=== PATIENT | male | born 1965 | race Caucasian/White ===

== ENCOUNTER 2017-10-23 00:35 | Emergency (ER) | payer BC ==
[~2017-10-23] VITALS: Ht 182.9 cm; Wt 81.6 kg
[2017-10-23 00:50] VITALS: BP 157/90
[2017-10-23] MEDS ORDERED: Ketorolac 30mg Inj IV ONE (01:00)
[2017-10-23] MEDS ORDERED: Dicyclomine HCl 10mg/5ml oral soln ORAL ONE (01:00)
[2017-10-23 01:42] LABS: APPEARANCE,URINE CLEAR; BILIRUBIN, URINE NEGATIVE (NEGATIVE); COLOR,URINE PALE YELLOW; GLUCOSE, URINE (UA) NEGATIVE (NEGATIVE); KETONES,URINE NEGATIVE (NEGATIVE); LEUKOCYTE ESTERASE ,URINE 1+ (NEGATIVE); NITRITE,URINE POSITIVE (NEGATIVE); PH,URINE 7 (4.5-8.0); PROTEIN,URINE 1+ (NEGATIVE); UROBILINOGEN,URINE NORMAL MG/DL (0.0-1.0)
[2017-10-23 01:58] LABS: ANION GAP 9 mmol/L (5-15); BLOOD UREA NITROGEN 18 mg/dL (7-18); CALCIUM 9.3 MG/DL (8.5-10.1); CARBON DIOXIDE 28 MMOL/L (21-32); CHLORIDE 101 MMOL/L (98-107); POTASSIUM 3.6 MMOL/L (3.5-5.1); SODIUM 138 MMOL/L (136-145)
[2017-10-23] MEDS ORDERED: HYDROmorphone 1mg/ml Carpuject IVP ONE (02:00)
[2017-10-23 02:03] LABS: ALANINE AMINOTRANSFERASE 27 U/L (12-78); ALBUMIN 3.8 G/DL (3.4-5.0); ALKALINE PHOSPHATASE 98 U/L (46-116); ASPARTATE AMINO TRANSFERASE 18 U/L (15-37); BILIRUBIN,TOTAL 0.4 MG/DL (0.2-1.0)
[2017-10-23 02:05] LABS: BASOPHILS % (AUTO) 1.2 % (0.0-2.0); EOSINOPHILS % (AUTO) 3.5 % (0.0-3.0); HEMATOCRIT 44.6 % (42.0-52.0); HEMOGLOBIN 15.5 G/DL (14.2-18.0); MEAN CORPUSCULAR VOLUME 91 FL (80-99); MONOCYTES % (AUTO) 8.1 % (1.0-10.0); NEUTROPHILS % (AUTO) 40.2 % (45.0-75.0); PLATELET COUNT 304 K/UL (150-450); WHITE BLOOD COUNT 10.1 K/UL (4.8-10.8)
[2017-10-23 03:00] VITALS: BP 148/82
[2017-10-23] MEDS ORDERED: TAMSULOSIN HCL0.4 MG ORAL (04:57)
[2017-10-23] MEDS ORDERED: PERCOCET 5-3251 EACH ORAL (04:57)
[2017-10-23 05:00] VITALS: BP 136/56
[2017-10-23 05:20] VITALS: BP 136/56
--- NOTE | 2017-10-23 06:51 | Emergency Room Report ---
History of Present Illness General Chief Complaint: Abdominal Pain Source: Patient Present Illness HPI Patient's a 52-year-old male who presented after increased left sided flank pain. Patient reportedly had prior history of kidney stones. He had been previously treated at [facility] with lithotripsy. The patient stated that he had been having sharp left sided flank pain. He denied having any testicular pain. He denied any diarrhea. He reported having one episode of vomiting.The patient is followed by Dr. Leila Delgado. He had been previously seen by Dr. Shine Hair for urology Allergies: Coded Allergies: No Known Allergies (Unverified , 10/23/17) Patient History Past Medical History: see triage record Reviewed Nursing Documentation: PMH: Agreed; PSxH: Agreed Review of Systems All Other Systems: negative except mentioned in HPI Physical Exam Vital Signs Date Time Temp Pulse Resp B/P (MAP) Pulse Ox O2 Delivery O2 Flow Rate FiO2 10/23/17 00:40 98.0 82 18 157/90 97 Room Air 98.1 Sp02 EP Interpretation: reviewed, normal General Appearance: normal inspection, well appearing, no apparent distress, alert, GCS 15 Head: atraumatic ENT: normal ENT inspection, hearing grossly normal, normal voice Neck: normal inspection, full range of motion, supple, no bony tend Respiratory: normal inspection, lungs clear, normal breath sounds, no respiratory distress, no retraction, no wheezing Cardiovascular #1: regular rate, rhythm, no edema Gastrointestinal: normal inspection, normal bowel sounds, non tender, soft, no guarding, no hernia Genitourinary: no CVA tenderness Musculoskeletal: normal inspection, back normal, normal range of motion Neurologic: normal inspection, alert, oriented x3, responsive, 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 Differential diagnosis included was not limited to pneumonia, renal stone, rib fracture, pulmonary embolism, ulcer, enteritis, pyelonephritis among others. Because of complexity of patient's case laboratory testing and imaging studies were ordered. KUB interpreted by showed metallic foreign body without evident obstruction or abnormal bowel gas pattern. The patient was given IV fluids as well as pain medication. The patient was offered a CT imaging which he declined and stated he had 2 previous CTs and did not want the radiation. The patient was offered admission and he declined. The patient stated that he wished to try outpatient medications and see if the stone passed spontaneously. Laboratory testing showed a normal renal function BUN/creatinine. White blood count was normal. The patient was advised follow-up with urology. Patient is advised to return if he began having persistent vomiting worsening pain or fever. Labs Test 10/23/17 00:57 White Blood Count 10.1 K/UL (4.8-10.8) Red Blood Count 4.90 M/UL (4.70-6.10) Hemoglobin 15.5 G/DL (14.2-18.0) Hematocrit 44.6 % (42.0-52.0) Mean Corpuscular Volume 91 FL (80-99) Mean Corpuscular Hemoglobin 31.6 PG (27.0-31.0) Mean Corpuscular Hemoglobin Concent 34.7 G/DL (32.0-36.0) Red Cell Distribution Width 12.0 % (11.6-14.8) Platelet Count 304 K/UL (150-450) Mean Platelet Volume 6.0 FL (6.5-10.1) Neutrophils (%) (Auto) 40.2 % (45.0-75.0) Lymphocytes (%) (Auto) 47.0 % (20.0-45.0) Monocytes (%) (Auto) 8.1 % (1.0-10.0) Eosinophils (%) (Auto) 3.5 % (0.0-3.0) Basophils (%) (Auto) 1.2 % (0.0-2.0) Urine Color Pale yellow Urine Appearance Clear Urine pH 7 (4.5-8.0) Urine Specific [place] 1.015 (1.005-1.035) Urine Protein 1+ (NEGATIVE) Urine Glucose (UA) Negative (NEGATIVE) Urine Ketones Negative (NEGATIVE) Urine Occult Blood 4+ (NEGATIVE) Urine Nitrite Positive (NEGATIVE) Urine Bilirubin Negative (NEGATIVE) Urine Urobilinogen Normal MG/DL (0.0-1.0) Urine Leukocyte Esterase 1+ (NEGATIVE) Urine RBC 2-4 /HPF (0 - 0) Urine WBC 0-2 /HPF (0 - 0) Urine Squamous Epithelial Cells Occasional /LPF Urine Bacteria Few /HPF (NONE) Sodium Level 138 MMOL/L (136-145) Potassium Level 3.6 MMOL/L (3.5-5.1) Chloride Level 101 MMOL/L (98-107) Carbon Dioxide Level 28 MMOL/L (21-32) Anion Gap 9 mmol/L (5-15) Blood Urea Nitrogen 18 mg/dL (7-18) Creatinine 1.0 MG/DL (0.55-1.30) Estimat Glomerular Filtration Rate > 60 mL/min (>60) Glucose Level 157 MG/DL (74-106) Calcium Level 9.3 MG/DL (8.5-10.1) Total Bilirubin 0.4 MG/DL (0.2-1.0) Aspartate Amino Transf (AST/SGOT) 18 U/L (15-37) Alanine Aminotransferase (ALT/SGPT) 27 U/L (12-78) Alkaline Phosphatase 98 U/L (46-116) Total Protein 7.6 G/DL (6.4-8.2) Albumin 3.8 G/DL (3.4-5.0) Globulin 3.8 g/dL Albumin/Globulin Ratio 1.0 (1.0-2.7) Lipase 166 U/L (73-393) Last Vital Signs Date Time Temp Pulse Resp B/P (MAP) Pulse Ox O2 Delivery O2 Flow Rate FiO2 10/23/17 05:20 98.1 79 18 136/56 96 Room Air 98.1 Status: improved Disposition: HOME, SELF-CARE Condition: Stable Scripts Tamsulosin Hcl (TAMSULOSIN HCL*) 0.4 Mg Cap.er.24h 0.4 MG ORAL BEDTIME, #10 CAP Prov: Yordan Ray 10/23/17 Oxycodone/Acetaminophen 5-325* (PERCOCET 5-325 MG TABLET*) 1 Each Tablet 1 TAB ORAL Q6H PRN for For Pain, #20 TAB Prov: Yordan Ray 10/23/17 Referrals: David Hair MD NOT CHOSEN [facility]/MD,REFERRING (PCP) Patient Instructions: Abdominal Pain, Adult CoryYordan Oct 23, 2017 06:51
--- NOTE | 2017-10-23 09:37 | Diagnostic Imaging Report ---
Indication: Abdominal pain Technique: XRAY Abdomen 1v Comparison: None Findings: Bowel gas pattern is nonobstructive and nonspecific. There is a radiodense 11 mm density projecting over the right upper abdomen. There is also a 1.4 cm calcification projecting over the left renal shadow. Degenerative changes of the spine and hips are seen. There is also suggestion of bilateral femoral acetabular impingement. Impression: Approximately 1.1 cm radiopaque density projecting over the right upper abdomen although the exact location is uncertain. Reported history of swallowed crown. Clinical correlation recommended. Nonobstructive bowel gas pattern. Calcification projecting of the left renal shadow could represent a calculus. Clinical correlation recommended.
[2017-10-23] MEDS ORDERED: ST. JOHN'S WOR300 MG PO (19:07)
[2017-10-23] MEDS ORDERED: RAMIPRIL10 MG ORAL (19:07)
[2017-10-23] MEDS ORDERED: SYMBICORT 16010.2 G1 IH (19:08)
[2017-10-23] MEDS ORDERED: ALBUTEROL SULF8.5 GM INH (21:15)
== END 2017-10-23 05:20 | disposition home or self-care (01) ==
LOC: EMR 01:09
DX: N23 Unspecified renal colic (principal); Z87.442 Personal history of urinary calculi
CPT/HCPCS: 36415; 74018; 80053; 81003; 83690; 85025; 96374; 96375; 99284; J1170; J1885; J2405

== ENCOUNTER 2017-10-23 16:40 | Inpatient (IN) | payer BC ==
[~2017-10-23] VITALS: Ht 182.9 cm; Wt 81.6 kg
[~2017-10-23 16:40] MED LIST: PERCOCET 5-3251 EACH ORAL; TAMSULOSIN HCL0.4 MG ORAL
[2017-10-23] MEDS ORDERED: HYDROmorphone 1mg/ml Carpuject IVP ONE (17:15)
[2017-10-23] MEDS ORDERED: DiphenhydrAMINE 50mg/ml Inj IVP ONE (17:15)
--- NOTE | 2017-10-23 17:15 | Emergency Room Report ---
History of Present Illness General Chief Complaint: Abdominal Pain Source: Patient Present Illness HPI Patient has a history of kidney stones. Patient has had 2 CAT scans in the past for his kidney stones. Patient also has a history of lithotripsy. Patient 's primary care physician is Dr. Garrett. Patient's urologist is Dr. Hoyos. Patient states that he had an acute attack on his left side and was seen in the emergency department yesterday. He had x-rays that show possible kidney stones. He declined a CT at that time because he's had 2 CAT scans are ready. He denies any fever nausea vomiting diarrhea or chills. States that the pain however has progressively become worse. He contacted his urologist and was told to come to the emergency department for evaluation and possible admission. Symptoms noted to be severe.No other modifying factors. No other associated signs and symptoms. No other complaints were noted. Allergies: Coded Allergies: No Known Allergies (Unverified , 10/23/17) Patient History Past Medical History: other - Kidney stone Past Surgical History: none Pertinent Family History: none Social History: Denies: smoking, alcohol use, drug use Reviewed Nursing Documentation: PMH: Agreed; PSxH: Agreed Nursing Documentation-PMH Hx Gastrointestinal Problems: Yes - KIDNEY STONE Review of Systems All Other Systems: negative except mentioned in HPI Physical Exam Vital Signs Date Time Temp Pulse Resp B/P (MAP) Pulse Ox O2 Delivery O2 Flow Rate FiO2 10/23/17 16:48 98.7 80 16 151/93 97 Room Air 98.8 Sp02 EP Interpretation: reviewed, normal General Appearance: alert, moderate distress Head: atraumatic Eyes: bilateral eye normal inspection ENT: normal ENT inspection, hearing grossly normal, normal voice Neck: normal inspection, full range of motion, supple, no bony tend Respiratory: normal inspection, lungs clear, normal breath sounds, no respiratory distress, no retraction, no wheezing Cardiovascular #1: regular rate, rhythm, no edema Gastrointestinal: normal inspection, normal bowel sounds, non tender, soft, no guarding, no hernia Genitourinary: CVA tenderness (L) Musculoskeletal: normal inspection, back normal, normal range of motion Neurologic: normal inspection, alert, responsive, speech normal Psychiatric: normal inspection, judgement/insight normal, anxious Skin: normal inspection, normal color, no rash Medical Decision Making Diagnostic Impression: Primary Impression: Kidney stone Additional Impressions: Renal colic on left side Intractable pain ER Course Patient presents emergency department today complaining of left flank pain. Differential considerations include kidney stone, lateral abnormality, infectious process just to name a few.Given the severity of the patient's presentation I felt this is a highly complex patient. This patient required extensive workup. CT scan of the abdomen and pelvis show a large 1.5 cm kidney stone at the left renal pelvis. Because of this large stone in the pain that is causing a for the patient require admission to the hospital. Case was discussed with Dr. Jonathon Bardales for admission. Labs Test 10/23/17 17:10 10/23/17 18:20 White Blood Count 17.1 K/UL (4.8-10.8) Red Blood Count 4.78 M/UL (4.70-6.10) Hemoglobin 14.7 G/DL (14.2-18.0) Hematocrit 43.2 % (42.0-52.0) Mean Corpuscular Volume 90 FL (80-99) Mean Corpuscular Hemoglobin 30.8 PG (27.0-31.0) Mean Corpuscular Hemoglobin Concent 34.1 G/DL (32.0-36.0) Red Cell Distribution Width 12.0 % (11.6-14.8) Platelet Count 269 K/UL (150-450) Mean Platelet Volume 5.8 FL (6.5-10.1) Neutrophils (%) (Auto) 80.3 % (45.0-75.0) Lymphocytes (%) (Auto) 11.9 % (20.0-45.0) Monocytes (%) (Auto) 6.9 % (1.0-10.0) Eosinophils (%) (Auto) 0.1 % (0.0-3.0) Basophils (%) (Auto) 0.8 % (0.0-2.0) Prothrombin Time 10.3 SEC (9.30-11.50) Prothromb Time International Ratio 1.0 (0.9-1.1) Activated Partial Thromboplast Time 29 SEC (23-33) Sodium Level 136 MMOL/L (136-145) Potassium Level 3.8 MMOL/L (3.5-5.1) Chloride Level 101 MMOL/L (98-107) Carbon Dioxide Level 24 MMOL/L (21-32) Anion Gap 11 mmol/L (5-15) Blood Urea Nitrogen 19 mg/dL (7-18) Creatinine 1.5 MG/DL (0.55-1.30) Estimat Glomerular Filtration Rate 48.8 mL/min (>60) Glucose Level 119 MG/DL (74-106) Calcium Level 9.0 MG/DL (8.5-10.1) Total Bilirubin 0.9 MG/DL (0.2-1.0) Aspartate Amino Transf (AST/SGOT) 25 U/L (15-37) Alanine Aminotransferase (ALT/SGPT) 25 U/L (12-78) Alkaline Phosphatase 76 U/L (46-116) Total Protein 7.9 G/DL (6.4-8.2) Albumin 3.8 G/DL (3.4-5.0) Globulin 4.1 g/dL Albumin/Globulin Ratio 0.9 (1.0-2.7) Lipase 95 U/L (73-393) Urine Color Yellow Urine Appearance Clear Urine pH 8 (4.5-8.0) Urine Specific [place] 1.010 (1.005-1.035) Urine Protein 1+ (NEGATIVE) Urine Glucose (UA) Negative (NEGATIVE) Urine Ketones 3+ (NEGATIVE) Urine Occult Blood 3+ (NEGATIVE) Urine Nitrite Negative (NEGATIVE) Urine Bilirubin Negative (NEGATIVE) Urine Urobilinogen Normal MG/DL (0.0-1.0) Urine Leukocyte Esterase 1+ (NEGATIVE) Urine RBC 10-15 /HPF (0 - 0) Urine WBC 5-10 /HPF (0 - 0) Urine Squamous Epithelial Cells None /LPF (NONE/OCC) Urine Amorphous Sediment Moderate /LPF (NONE) Urine Bacteria Moderate /HPF (NONE) CT/MRI/US Diagnostic Results CT/MRI/US Diagnostic Results : Imaging Test Ordered: CT:Large left-sided kidney stone Last Vital Signs Date Time Temp Pulse Resp B/P (MAP) Pulse Ox O2 Delivery O2 Flow Rate FiO2 10/23/17 16:48 98.7 80 16 151/93 97 Room Air 98.8 Status: improved Disposition: ADMITTED INPATIENT Condition: Serious PIPER PIMENTEL M.D. Oct 23, 2017 17:15
[2017-10-23 17:53] LABS: ANION GAP 11 mmol/L (5-15); BASOPHILS % (AUTO) 0.8 % (0.0-2.0); BLOOD UREA NITROGEN 19 mg/dL (7-18); CARBON DIOXIDE 24 MMOL/L (21-32); CHLORIDE 101 MMOL/L (98-107); CREATININE 1.5 MG/DL (0.55-1.30); EOSINOPHILS % (AUTO) 0.1 % (0.0-3.0); HEMATOCRIT 43.2 % (42.0-52.0); HEMOGLOBIN 14.7 G/DL (14.2-18.0); LYMPHOCYTES % (AUTO) 11.9 % (20.0-45.0); MEAN CORPUSCULAR VOLUME 90 FL (80-99); MONOCYTES % (AUTO) 6.9 % (1.0-10.0); NEUTROPHILS % (AUTO) 80.3 % (45.0-75.0); PLATELET COUNT 269 K/UL (150-450); POTASSIUM 3.8 MMOL/L (3.5-5.1); RED BLOOD COUNT 4.78 M/UL (4.70-6.10); SODIUM 136 MMOL/L (136-145); WHITE BLOOD COUNT 17.1 K/UL (4.8-10.8)
[2017-10-23 17:57] LABS: ALANINE AMINOTRANSFERASE 25 U/L (12-78); ALBUMIN 3.8 G/DL (3.4-5.0); ALBUMIN/GLOBULIN RATIO 0.9 (1.0-2.7); ALKALINE PHOSPHATASE 76 U/L (46-116); ASPARTATE AMINO TRANSFERASE 25 U/L (15-37); BILIRUBIN,TOTAL 0.9 MG/DL (0.2-1.0)
[2017-10-23 19:05] LABS: APPEARANCE,URINE CLEAR; BILIRUBIN, URINE NEGATIVE (NEGATIVE); GLUCOSE, URINE (UA) NEGATIVE (NEGATIVE); KETONES,URINE 3+ (NEGATIVE); LEUKOCYTE ESTERASE ,URINE 1+ (NEGATIVE); NITRITE,URINE NEGATIVE (NEGATIVE); PH,URINE 8 (4.5-8.0); PROTEIN,URINE 1+ (NEGATIVE); UROBILINOGEN,URINE NORMAL MG/DL (0.0-1.0)
[2017-10-23] MEDS ORDERED: ST. JOHN'S WOR300 MG PO (19:07)
[2017-10-23] MEDS ORDERED: RAMIPRIL10 MG ORAL (19:07)
[2017-10-23] MEDS ORDERED: SYMBICORT 16010.2 G1 IH (19:08)
[2017-10-23 19:19] VITALS: BP 142/84
[2017-10-23 19:29] LABS: COLOR,URINE YELLOW
[2017-10-23] MEDS ORDERED: cefTRIAXone 1 GM in D5W 55 ML IVPB ONE (19:45)
[2017-10-23] MEDS ORDERED: ALBUTEROL SULF8.5 GM INH (21:15)
[2017-10-23] MEDS: Tamsulosin 0.4mg cap ORAL SCH (22:04)
[2017-10-23] MEDS: D5 1/2NS 1,000 ML IV SCH (22:10)
[2017-10-24] VITALS: BP 116/74
[2017-10-24 04:00] VITALS: BP 136/81
[2017-10-24] MEDS: LORazepam 1mg tab ORAL PRN (04:20)
[2017-10-24] MEDS ORDERED: Vancomycin 1.5 GM/D5W 250ML IVPB ONE (05:00)
[2017-10-24] MEDS ORDERED: Zosyn 3.375gm inj ONE (05:55)
[2017-10-24] MEDS: Zosyn 3.375gm q8h **Extended infusion IVPB SCH ×6 (06:37→21:06)
[2017-10-24] MEDS: D5 1/2NS 1,000 ML IV SCH ×3 (06:37→23:00)
[2017-10-24 08:00] VITALS: BP 131/75
--- NOTE | 2017-10-24 09:25 | Diagnostic Imaging Report ---
Indication: Left-sided abdominal pain Technique: CT scan of the abdomen and pelvis utilizing automated exposure control without intravenous or oral contrast. Axial, sagittal and coronal images were obtained. CT dose: Total DLP 706 mGycm; CTDI vol 13.1 mGy Comparison: Plain radiographs from earlier the same day Findings: Evaluation of the solid organs is limited without intravenous contrast material. There is reticular prominence in the lung bases especially the left lower lobe. There is moderate left hydronephrosis with perinephric stranding. Approximately 1.5 cm calculus is seen in the region of the left renal pelvis/ureteral pelvic junction. Nonobstructive calculi are also seen of the bilateral kidneys measuring up to 4 mm. There is no right-sided hydronephrosis. There is a 1.5 cm right adrenal nodule compatible with adenoma. The spleen and pancreas are unremarkable. No CT dense gallstones are identified. There is a calcification in the right lobe of the liver. Small bowel loops are normal in caliber. The appendix is normal. There is a metallic density with adjacent artifact in the transverse colon. There is trace fluid in the pelvis. There is no free intraperitoneal air. Bladder is not well distended limiting evaluation. Degenerative changes of the spine, sacroiliac joints and hips are noted. Impression: Moderate left hydronephrosis with perinephric stranding. Approximately 1.5 cm calculus in the region of the left renal pelvis/ureteropelvic junction. Superimposed infection not excluded. Clinical correlation recommended. Nonobstructive bilateral renal calculi. Metallic density within the mid transverse colon. Swallowed foreign body should be considered. Normal appendix. Right adrenal low-density nodule compatible with adenoma. Mild reticular opacities in the lung bases especially in the left lower lobe, acuity indeterminate. Nonspecific interstitial process or bronchiolitis not excluded. Clinical correlation recommended. Other findings as above. The CT scanner at [facility] is accredited by the [employer] and the scans are performed using protocols designed to limit radiation exposure to as low as reasonably achievable to attain images of sufficient resolution adequate for diagnostic evaluation.
[2017-10-24 12:00] VITALS: BP 131/76
[2017-10-24] MEDS: Ramipril 2.5mg cap ORAL SCH (12:25)
[2017-10-24] MEDS ORDERED: Tubing IV Secondary IV ONE (14:29)
[2017-10-24] MEDS ORDERED: D5 1/2NS 1000ml IV ONE (14:29)
--- NOTE | 2017-10-24 14:30 | History & Physical ---
History and Physical History & Physicial HP dictated # [id number] ELENA JAEGER Oct 24, 2017 14:30
[2017-10-24 16:00] VITALS: BP 101/73
--- NOTE | 2017-10-24 19:15 | History and Physical Report ---
DATE OF ADMISSION: 10/23/2017 CHIEF COMPLAINT: Left-sided back pain. HISTORY OF PRESENT ILLNESS: This is a 52-year-old white male, who has history of kidney stones status post lithotripsy. The patient's primary doctor is Dr. Delgado. He asked me to see the patient for admission. The patient's urologist is Dr. Hair who was in contact with the patient yesterday and he cleared the patient to go to the emergency room. The patient was started on IV fluids, pain medication and was admitted. PAST MEDICAL HISTORY: Only includes history of kidney stones. The patient denies history of diabetes or hypertension. MEDICATIONS: Reviewed in the EMR. SOCIAL HISTORY: The patient has no history of smoking or alcohol abuse. ALLERGIES: No known drug allergies. REVIEW OF SYSTEMS: Noncontributory except what was mentioned. PHYSICAL EXAMINATION: GENERAL: The patient is a pleasant male, in no acute distress. VITAL SIGNS: In the emergency room, blood pressure was 151/93, pulse 80, temperature 98.7, respiratory rate 16. HEENT: [place] conjunctivae. Anicteric sclerae. NECK: Supple. LUNGS: Clear to auscultation. HEART: S1, S2 without murmurs or rubs. ABDOMEN: Soft, nontender without any mass. EXTREMITIES: No cyanosis or edema. LABORATORY FINDINGS: As of yesterday, the CBC showed WBC of 17,100, hematocrit 43.2, hemoglobin 14.7, and platelets 269,000. Chemistry panel shows serum sodium 136, potassium 3.8, chloride 101, CO2 24, BUN 19, creatinine 1.5, and glucose is 119. Albumin 3.8. The UA shows 5 to 10 wbc's per high-power field, 10 to 15 rbc's per high-power field, and 1+ protein. ASSESSMENT: This is a 52-year-old white male who was admitted with renal colic. The patient received some IV fluid and overnight he had some chills and was started on IV antibiotics. Currently, he does not have any pain. PLAN: I discussed the case with Dr. Hair over the phone this morning and he will see the patient and he may do cystoscopy in a few days and would like to have the patient on antibiotics for that period of time. The patient will be hydrated and adjustment will be made in the patient's regimen. The patient has also acute renal failure which may be from prerenal azotemia or obstruction, so the chemistry panel will be followed tomorrow. Jonathon Bardales M.D. DR: Tiara JOB#: [id number] CC:
[2017-10-24 20:00] VITALS: BP 134/89
[2017-10-24] MEDS: Tamsulosin 0.4mg cap ORAL SCH (21:00)
[2017-10-25] VITALS: BP 119/79
[2017-10-25 04:00] VITALS: BP 115/76
[2017-10-25] MEDS: Zosyn 3.375gm q8h **Extended infusion IVPB SCH ×6 (05:20→21:05)
[2017-10-25] MEDS: D5 1/2NS 1,000 ML IV SCH ×2 (05:20→15:00)
[2017-10-25 08:08] VITALS: BP 134/83
[2017-10-25] MEDS: Ramipril 2.5mg cap ORAL SCH (08:33)
[2017-10-25] MEDS: Vancomycin 1.5 GM/D5W 250ML IVPB SCH (10:13)
--- NOTE | 2017-10-25 11:06 | General Progress Note ---
Assessment/Plan Problem List: (1) Renal colic on left side ICD Codes: N23 - Unspecified renal colic SNOMED: 6297659 (2) Intractable pain ICD Codes: R52 - Pain, unspecified SNOMED: 38045253 (3) Kidney stone ICD Codes: N20.0 - Calculus of kidney SNOMED: 89120823 Assessment/Plan IVF pain meds will discuss with Dr Hair Subjective Allergies: Coded Allergies: No Known Allergies (Unverified , 10/23/17) Subjective has on and off pain Objective Last 24 Hour Vital Signs Date Time Temp Pulse Resp B/P (MAP) Pulse Ox O2 Delivery O2 Flow Rate FiO2 10/25/17 08:33 134/83 10/25/17 08:08 99.1 88 19 134/83 100 Room Air 99.1 10/25/17 04:00 98.4 79 18 115/76 97 Room Air 98.4 10/25/17 00:00 97.8 80 17 119/79 97 Room Air 97.8 10/24/17 21:25 99.3 10/24/17 21:21 99.3 99.3 10/24/17 20:00 99.8 87 19 134/89 97 Room Air 99.8 10/24/17 19:53 100.6 10/24/17 18:44 100.6 100.6 10/24/17 16:54 100.3 100.3 10/24/17 16:00 100.4 74 18 101/73 96 Room Air 100.4 10/24/17 15:05 101.4 10/24/17 15:00 101.4 101.4 10/24/17 12:25 131/76 10/24/17 12:00 99.8 96 18 131/76 100 Room Air 99.8 Intake and Output 10/24/17 10/25/17 19:00 07:00 Intake Total 55.0 ml 1172.5 ml Output Total 1150 ml Balance -1095.0 ml 1172.5 ml Intake Oral 360 ml IV Total 55.0 ml 812.5 ml Output Urine Total 1150 ml # Voids 1 1 Height (Feet): 6 Height (Inches): 0.00 Weight (Pounds): 180 Cardiovascular: normal rate Respiratory/Chest: lungs clear Abdomen: soft Edema: no edema noted ELENA Skelton Oct 25, 2017 11:06
[2017-10-25 12:00] VITALS: BP 146/90
[2017-10-25] MEDS: Docusate 100mg cap ORAL SCH ×2 (13:16→18:27)
[2017-10-25 16:00] VITALS: BP 128/85
--- NOTE | 2017-10-25 17:00 | Consultation ---
DATE OF CONSULTATION: 10/25/2017 REASON FOR CONSULTATION: Left ureteral stone and urosepsis. HISTORY OF PRESENT ILLNESS: This is a 52-year-old male. He had a history of kidney stones and I operated him in 2011 with similar complaint and at this time, he developed acute renal colic, came to [facility] ER twice. First time, he left and second time came with my advise and got admitted for 1.5 cm stone in the left renal pelvis and urinary and blood cultures were done and the patient was started on Zosyn and vancomycin with some improvement. The CT scan was done showing 1.5 cm stone in the collecting system of the . PAST MEDICAL HISTORY: Includes history of kidney stones. No history of diabetes or hypertension. MEDICATIONS: Reviewed in the EMR. ALLERGIES: No known drug allergies. SOCIAL HISTORY: No history of smoking or alcohol abuse. REVIEW OF SYMPTOMS: Noncontributory except for left flank pain. PHYSICAL EXAMINATION: GENERAL: He is a pleasant man, in no acute distress. LUNGS: Clear to auscultation. CARDIOVASCULAR: Regular rate and rhythm. S1 and S2 without murmurs. ABDOMEN: Soft. Slightly tender in the left quadrant. LABORATORY DATA: Reviewed. WBC was 17,000, and platelets 269,000. Creatinine is 1.5. Glucose 119. CT was reviewed as I mentioned before. ASSESSMENT AND PLAN: This is a 52-year-old male with urosepsis and left renal stone. I discussed the strategies with Dr. Bardales and the patient. The patient will receive couple days of intravenous antibiotics followed by definitive surgery. David Hair M.D. DR: LANA JOB#: [id number] CC:
[2017-10-25] MEDS ORDERED: Magnesium Citrate Liq Btl ORAL SCH (17:30)
--- NOTE | 2017-10-25 18:00 | Consultation ---
DATE OF CONSULTATION: 10/25/2017 INFECTIOUS DISEASE CONSULTATION CONSULTING PHYSICIAN: Vin Bardales M.D. PRIMARY ATTENDING PHYSICIAN: Jonathon Bardales M.D. REASON FOR CONSULT: Sepsis, bacteremia. HISTORY OF PRESENT ILLNESS: This is a 52-year-old white male, who has history of kidney stones, started to have pain in the left flank a couple of days ago. He stated that his pain was on and off, 04/13. He was admitted on 10/23/2017, had fever up to 101.4. In hospital, blood cultures growing gram-positive cocci. The patient also states that he ingested dental crown. PAST MEDICAL HISTORY: He has nephrolithiasis x2 and has history of lithotripsy. ALLERGIES: No known drug allergies. MEDICATIONS: Getting vancomycin, Ramipril, Zosyn, lorazepam, Flomax, hydromorphone, and . The patient had fever yesterday, today he is afebrile. He has nausea, vomiting, and constipation that are treated with hydromorphone. Abdominal pain has shifted to lower abdomen in the left side. SOCIAL HISTORY: . He is a [employer] software engineer. Does not drink. Does not smoke. Use sometimes marijuana. PHYSICAL EXAMINATION: VITAL SIGNS: Temperature 99.1 degrees, pulse 88, and blood pressure 134/83. GENERAL APPEARANCE: No acute distress. HEAD AND NECK: [place] conjunctiva. HEART: S1 and S2. Regular. LUNGS: Clear. ABDOMEN: Soft. Mildly tender in left lower abdomen. EXTREMITIES: He has no edema. LABORATORY AND DIAGNOSTIC DATA: Sodium 136, potassium 3.6, chloride 101, bicarb 24, BUN 19, creatinine 1.5, and glucose 119. WBC on 10/23/2017 was 17.1, hemoglobin 14.7, hematocrit 43.2, and platelets 269,000. The patient has the CT scan of the abdomen and pelvis that showed 1.5 cm stone in the left renal pelvic or ureteropelvic junction, moderate left hydronephrosis with perinephric stranding and additional nonobstructive bilateral renal calculi. There was nonmetallic density within the mid transverse colon. So, swallowed foreign body should be considered. IMPRESSION: Sepsis with fever and leukocytosis. The patient has bacteremia with gram-positive cocci. May have urinary tract infection, pyelonephritis, has left hydronephrosis, has nephrolithiasis, has right adrenal adenoma, has some evidence of kidney injury. RECOMMENDATION: We will continue with Zosyn and vancomycin. The patient will have a visit from urologist Dr. Hair today. We will start the patient on a stool softener. We will repeat CBC tomorrow. At the end of my exam, I thank Dr. Bardales, for involving me in the care of this patient. Vin Bardales M.D. DR: DAVI JOB#: [id number] CC:
[2017-10-25 20:00] VITALS: BP 137/87
[2017-10-25] MEDS: Tamsulosin 0.4mg cap ORAL SCH (21:00)
[2017-10-25] MEDS: LORazepam 1mg tab ORAL PRN (22:53)
[2017-10-26] VITALS (8 sets, daily range): BP systolic 120–152; BP diastolic 79–97
[2017-10-26] MEDS: D5 1/2NS 1,000 ML IV SCH ×4 (01:12→21:45)
[2017-10-26] MEDS: Zosyn 3.375gm q8h **Extended infusion IVPB SCH ×6 (05:37→21:44)
[2017-10-26] MEDS: Ramipril 2.5mg cap ORAL SCH (08:47)
[2017-10-26] MEDS: Docusate 100mg cap ORAL SCH ×3 (08:47→18:00)
[2017-10-26 09:10] LABS: BASOPHILS % (AUTO) 0.5 % (0.0-2.0); EOSINOPHILS % (AUTO) 1.1 % (0.0-3.0); HEMATOCRIT 39.2 % (42.0-52.0); HEMOGLOBIN 13.4 G/DL (14.2-18.0); LYMPHOCYTES % (AUTO) 15.5 % (20.0-45.0); MEAN CORPUSCULAR VOLUME 92 FL (80-99); NEUTROPHILS % (AUTO) 70.9 % (45.0-75.0); PLATELET COUNT 247 K/UL (150-450); RED BLOOD COUNT 4.24 M/UL (4.70-6.10); RED CELL DISTRIBUTION WIDTH 12.1 % (11.6-14.8); WHITE BLOOD COUNT 11.5 K/UL (4.8-10.8)
[2017-10-26 09:19] LABS: ANION GAP 8 mmol/L (5-15); BLOOD UREA NITROGEN 9 mg/dL (7-18); CARBON DIOXIDE 28 MMOL/L (21-32); CHLORIDE 99 MMOL/L (98-107); CREATININE 1.7 MG/DL (0.55-1.30); POTASSIUM 4.2 MMOL/L (3.5-5.1); SODIUM 135 MMOL/L (136-145)
[2017-10-26] MEDS ORDERED: NS 500ML ONE (09:21)
[2017-10-26] MEDS ORDERED: Tubing IV Secondary IV ONE (09:21)
[2017-10-26] MEDS ORDERED: D5 1/2NS 1000ml IV ONE (09:21)
[2017-10-26] MEDS: Vancomycin 1.5 GM/D5W 250ML IVPB SCH (10:42)
--- NOTE | 2017-10-26 12:00 | Infectious Diseases Prog Note ---
Assessment/Plan Assessment/Plan A; Sepsis Bacteremia Upper UTI pyelonephritis Nephrolithiasis Left hydronephrosis Intracolonic foreign body P; Continue Vancomycin & Zosyn will f/u cultures will f/u KUB Subjective ROS Limited/Unobtainable: No Constitutional: Reports: fever Respiratory: Reports: no symptoms Gastrointestinal/Abdominal: Reports: other - had bowel movement Genitourinary: Reports: other - lower abdominal pain in left side Neurologic: Reports: no symptoms Allergies: Coded Allergies: No Known Allergies (Unverified , 10/23/17) Objective Vital Signs Last 24 Hour Vital Signs Date Time Temp Pulse Resp B/P (MAP) Pulse Ox O2 Delivery O2 Flow Rate FiO2 10/26/17 11:21 99.9 10/26/17 10:08 99.9 99.9 10/26/17 09:46 100.8 10/26/17 08:47 100.8 10/26/17 08:47 135/79 10/26/17 08:30 100.8 87 20 135/79 95 Room Air 100.8 10/26/17 04:00 100.1 77 20 120/84 96 Room Air 100.1 10/26/17 00:00 99.1 90 20 135/88 95 Room Air 99.1 10/25/17 20:00 99.0 85 20 137/87 98 Room Air 99.0 10/25/17 16:00 101.5 81 20 128/85 98 Room Air 101.5 10/25/17 15:38 101.5 10/25/17 12:00 99.4 84 20 146/90 98 Room Air 99.4 Height (Feet): 6 Height (Inches): 0.00 Weight (Pounds): 180 General Appearance: no acute distress HEENT: mucous membranes moist Respiratory/Chest: lungs clear Cardiovascular: normal rate Abdomen: soft, non tender Extremities: no edema Neurologic/Psychiatric: alert, oriented x 3, responsive Microbiology Date/Time Source Procedure Growth Status 10/24/17 04:20 Blood Blood Culture - Preliminary Gram Positive Cocci Resulted 10/24/17 04:10 Blood Blood Culture - Preliminary Gram Positive Cocci Resulted 10/23/17 18:20 Urine,Clean Catch Urine Culture - Preliminary Mixed Gram Positive Organism Resulted Laboratory Tests Test 10/26/17 06:30 White Blood Count 11.5 K/UL (4.8-10.8) H Red Blood Count 4.24 M/UL (4.70-6.10) L Hemoglobin 13.4 G/DL (14.2-18.0) L Hematocrit 39.2 % (42.0-52.0) L Mean Corpuscular Volume 92 FL (80-99) Mean Corpuscular Hemoglobin 31.6 PG (27.0-31.0) H Mean Corpuscular Hemoglobin Concent 34.2 G/DL (32.0-36.0) Red Cell Distribution Width 12.1 % (11.6-14.8) Platelet Count 247 K/UL (150-450) Mean Platelet Volume 6.2 FL (6.5-10.1) L Neutrophils (%) (Auto) 70.9 % (45.0-75.0) Lymphocytes (%) (Auto) 15.5 % (20.0-45.0) L Monocytes (%) (Auto) 12.0 % (1.0-10.0) H Eosinophils (%) (Auto) 1.1 % (0.0-3.0) Basophils (%) (Auto) 0.5 % (0.0-2.0) Sodium Level 135 MMOL/L (136-145) L Potassium Level 4.2 MMOL/L (3.5-5.1) Chloride Level 99 MMOL/L (98-107) Carbon Dioxide Level 28 MMOL/L (21-32) Anion Gap 8 mmol/L (5-15) Blood Urea Nitrogen 9 mg/dL (7-18) Creatinine 1.7 MG/DL (0.55-1.30) H Estimat Glomerular Filtration Rate 42.2 mL/min (>60) Glucose Level 100 MG/DL (74-106) Calcium Level 9.0 MG/DL (8.5-10.1) Current Medications Medications (Trade) Dose Ordered Sig/Johnathan Route PRN Reason Start Time Stop Time Status Last Admin Dose Admin Acetaminophen (Tylenol) 650 mg Q4H PRN ORAL Mild Pain/Temp > 100.5 10/23/17 22:00 11/22/17 21:59 10/26/17 08:47 Dextrose/Sodium Chloride 1,000 ml @ 125 mls/hr Q8H IV 10/23/17 23:00 11/22/17 22:59 10/26/17 10:42 Docusate Sodium (Colace) 100 mg THREE TIMES A DAY ORAL 10/25/17 13:00 11/24/17 12:59 10/26/17 08:47 Hydromorphone HCl (Dilaudid) 1 mg Q4H PRN IVP Moderate Pain (Pain Scale 4-6) 10/23/17 22:00 10/30/17 21:59 10/26/17 01:06 Hydromorphone HCl (Dilaudid) 1.5 mg Q4H PRN IVP Severe Pain (Pain Scale 7-10) 10/23/17 22:00 10/30/17 21:59 10/26/17 11:21 Lorazepam (Ativan) 1 mg Q4H PRN ORAL For Anxiety 10/24/17 04:15 10/31/17 04:14 10/25/17 22:53 Ondansetron HCl (Zofran) 4 mg Q4H PRN IVP Nausea & Vomiting 10/23/17 22:00 11/22/17 21:59 10/25/17 11:49 Piperacillin Sod/ Tazobactam Sod 3.375 gm/Sodium Chloride 110 ml @ 27.5 mls/hr EVERY 8 HOURS IVPB 10/24/17 06:00 10/29/17 05:59 10/26/17 05:37 Ramipril (Altace) 10 mg DAILY ORAL 10/24/17 11:00 11/23/17 10:59 10/26/17 08:47 Tamsulosin HCl (Flomax) 0.4 mg BEDTIME ORAL 10/23/17 23:00 11/22/17 22:59 Vancomycin HCl (Vanco rx to dose) 1 ea DAILY PRN MISC Per rx protocol 10/24/17 04:30 11/23/17 04:29 Vancomycin HCl/ Dextrose 250 ml @ 125 mls/hr Q24H IVPB 10/25/17 10:00 10/30/17 09:59 10/26/17 10:42 GURJIT JAEGER Oct 26, 2017 12:00
--- NOTE | 2017-10-26 12:17 | General Progress Note ---
Assessment/Plan Problem List: (1) Renal colic on left side ICD Codes: N23 - Unspecified renal colic SNOMED: 2540263 (2) Intractable pain ICD Codes: R52 - Pain, unspecified SNOMED: 94364444 (3) Kidney stone ICD Codes: N20.0 - Calculus of kidney SNOMED: 32497128 Assessment/Plan IVF Increase Dilaudid to Q 3 hrs lithotripsy tomorrow IV Abxs Subjective Allergies: Coded Allergies: No Known Allergies (Unverified , 10/23/17) Subjective pt states he still has pain even with Dilaudid Objective Last 24 Hour Vital Signs Date Time Temp Pulse Resp B/P (MAP) Pulse Ox O2 Delivery O2 Flow Rate FiO2 10/26/17 11:51 99.9 10/26/17 11:21 99.9 10/26/17 10:08 99.9 99.9 10/26/17 09:46 100.8 10/26/17 08:47 100.8 10/26/17 08:47 135/79 10/26/17 08:30 100.8 87 20 135/79 95 Room Air 100.8 10/26/17 04:00 100.1 77 20 120/84 96 Room Air 100.1 10/26/17 00:00 99.1 90 20 135/88 95 Room Air 99.1 10/25/17 20:00 99.0 85 20 137/87 98 Room Air 99.0 10/25/17 16:00 101.5 81 20 128/85 98 Room Air 101.5 10/25/17 15:38 101.5 Intake and Output 10/25/17 10/26/17 19:00 07:00 Intake Total 460 ml 437.5 ml Output Total 950 ml Balance -490 ml 437.5 ml Intake Oral 460 ml 300 ml IV Total 137.5 ml Output Urine Total 950 ml # Voids 2 2 Laboratory Tests 10/26/17 06:30: White Blood Count 11.5H, Red Blood Count 4.24L, Hemoglobin 13.4L, Hematocrit 39.2L, Mean Corpuscular Volume 92, Mean Corpuscular Hemoglobin 31.6H, Mean Corpuscular Hemoglobin Concent 34.2, Red Cell Distribution Width 12.1, Platelet Count 247, Mean Platelet Volume 6.2L, Neutrophils (%) (Auto) 70.9, Lymphocytes ( %) (Auto) 15.5L, Monocytes (%) (Auto) 12.0H, Eosinophils (%) (Auto) 1.1, Basophils (%) (Auto) 0.5, Sodium Level 135L, Potassium Level 4.2, Chloride Level 99, Carbon Dioxide Level 28, Anion Gap 8, Blood Urea Nitrogen 9, Creatinine 1.7H, Estimat Glomerular Filtration Rate 42.2, Glucose Level 100, Calcium Level 9.0 Height (Feet): 6 Height (Inches): 0.00 Weight (Pounds): 180 Cardiovascular: normal rate Respiratory/Chest: lungs clear Edema: no edema noted Generalized ELENA JAEGER Oct 26, 2017 12:17
[2017-10-26] MEDS: LORazepam 1mg tab ORAL PRN (12:18)
--- NOTE | 2017-10-26 14:13 | Diagnostic Imaging Report ---
Indication: Flank pain Technique: Supine view of the abdomen Comparison: 10/23/2017 Findings: Previously demonstrated right upper quadrant metallic foreign body now projects in the right lower quadrant. A 2 cm calcification projects in the region of the left renal hilum, unchanged. Bowel gas pattern is unremarkable. Impression: Abdominal foreign body projecting in the right lower quadrant, presumably swallowed foreign body given clinical history of swallowed crown described on recent reports. Previously demonstrated on CT scan to be within the transverse colon. Current location indicates that it has likely progressed to the sigmoid colon. Large left renal pelvic calculus again demonstrated.
[2017-10-26] MEDS: Tamsulosin 0.4mg cap ORAL SCH (20:47)
[2017-10-27] VITALS (14 sets, daily range): BP systolic 104–174; BP diastolic 63–99
[2017-10-27] MEDS: Zosyn 3.375gm q8h **Extended infusion IVPB SCH ×2 (05:05)
[2017-10-27] MEDS: D5 1/2NS 1,000 ML IV SCH (05:06)
[2017-10-27] MEDS ORDERED: Lidocaine 1% MPF 10mg/ml 5ml ONE (06:33)
[2017-10-27] MEDS ORDERED: Ketorolac 30mg Inj ONE (06:33)
[2017-10-27] MEDS ORDERED: Midazolam 2mg/2ml Inj ONE (06:33)
[2017-10-27] MEDS ORDERED: Propofol 200mg/20ml IV ONE (06:33)
[2017-10-27] MEDS ORDERED: fentaNYL 100 mcg/2 mL IV ONE (06:33)
[2017-10-27] MEDS ORDERED: cefOXitin 2gm Inj ONE (06:34)
[2017-10-27] MEDS ORDERED: Zemuron 50mg/5ml Inj IV ONE (07:00)
[2017-10-27] MEDS ORDERED: Sterile Water Irrig 1000ml IRRIG ONE (07:00)
[2017-10-27] MEDS ORDERED: Succinylcholine 20mg/ml 10ml vial ONE (07:00)
[2017-10-27] MEDS ORDERED: Neostigmine 1mg/ml 10ml Inj ONE (07:00)
[2017-10-27] MEDS ORDERED: NS Irrig 1000ml ONE (07:00)
[2017-10-27] MEDS ORDERED: Iothalamate Meglumine 60% 30ML INJ ONE (07:15)
[2017-10-27] MEDS ORDERED: NS Irrig 2000ml IRRIG ONE (07:15)
--- NOTE | 2017-10-27 07:27 | Pre-Procedure Note/Attestation ---
Pre-Procedure Note/Attestation Complete Prior to Procedure Planned Procedure: left Procedure Narrative: ESWL RIRS left stent placement Indications for Procedure Pre-Operative Diagnosis: left renal stone Attestation I attest that I discussed the nature of the procedure; its benefits; risks and complications; and alternatives (and the risks and benefits of such alternatives ), prior to the procedure, with the patient (or the patient's legal solar sales representative). I attest that, if there was a reasonable possibility of needing a blood transfusion, the patient (or the patient's legal solar sales representative) was given the [facility] standardized written summary, pursuant to the [employer] Blood Safety Act ([place] Health and Safety Code # 1645, as amended). I attest that I re-evaluated the patient just prior to the surgery and that there has been no change in the patient's H&P, except as documented below: David Hair MD Oct 27, 2017 07:27
[2017-10-27] MEDS ORDERED: Glycopyrrolate 0.2mg/ml 1ml Vial ONE (07:54)
--- NOTE | 2017-10-27 08:08 | Anethesia Preoperative Eval ---
Anesthesia Pre-op PMH/ROS General Date of Evaluation: Oct 27, 2017 Time of Evaluation: 07:02 Anesthesiologist: Bindu ASA Score: ASA 2 Mallampati Score Class I : Soft palate, uvula, fauces, pillars visible Class II: Soft palate, uvula, fauces visible Class III: Soft palate, base of uvula visible Class IV: Only hard plate visible Mallampati Classification: Class II Surgeon: Laxmi Diagnosis: L kidney stone Surgical Procedure: ESWL Anesthesia History: none Family History: no anesthesia problems Allergies: Coded Allergies: No Known Allergies (Unverified , 10/23/17) Medications: see eMAR Past Medical History Cardiovascular: Denies: HTN, CAD, VA, valve dz, arrhythmia, other Pulmonary: Denies: asthma, COPD, YANIV, other Gastrointestinal/Genitourinary: Reports: GERD, other - Kidney stoneKidney stones; Denies: CRI, ESRD Neurologic/Psychiatric: Denies: dementia, CVA, depression/anxiety, TIA, other Endocrine: Denies: DM, hypothyroidism, steroids, other HEENT: Denies: cataract (L), cataract (R), glaucoma, [place] (L), [place] (R), other Hematology/Immune: Denies: anemia, DVT, bleeding disorder, other Musculoskeletal/Integumentary: Denies: OA, RA, DJD, DDD, edema, other PMH Narrative: admitted for renal colic possible sepsis PSxH Narrative: Lithotripsy Anesthesia Pre-op Phys. Exam Physician Exam Last Vital Signs Date Time Temp Pulse Resp B/P (MAP) Pulse Ox O2 Delivery O2 Flow Rate FiO2 10/27/17 04:00 98.7 82 18 128/88 98 Room Air 98.7 Constitutional: NAD Neurologic: CN 2-12 intact Cardiovascular: RRR, no M/R/G Respiratory: CTA Gastrointestinal: S/NT/ND Airway Exam Mallampati Score: Class II MO: full Neck: flexible Teeth: intact Dentures: no upper, no lower Anesthesia Pre-op A/P Labs see chart Risk Assessment & Plan Assessment: ASA 2 Plan: GA with ETT Status Change Before Surgery: No Pre-Antibiotics Drug: as schedled Given Within 1 Hr of Incision: Yes Time Given: 08:06 EDELMIRA SWANSON M.D. Oct 27, 2017 08:08
[2017-10-27] MEDS ORDERED: DiphenhydrAMINE 50mg/ml Inj IVP PRN (08:15)
--- NOTE | 2017-10-27 08:58 | Brief Operative Note ---
Immediate Post Operative Note Operative Note Pre-op Diagnosis: left renal stone Procedure: ESWL RIRS left stent placement Post-op Diagnosis: same Post-op Diagnosis: same as pre-op Surgeon: Shine Hair Anesthesia: general Specimen: none Complications: none Condition: stable Fluids: 1000 Estimated Blood Loss: minimal Drains: other Implant(s) used?: No David Hair MD Oct 27, 2017 08:58
[2017-10-27] MEDS ORDERED: Norco 5mg/325mg tab ORAL PRN (09:00)
[2017-10-27] MEDS ORDERED: HYDROmorphone 1mg/ml Carpuject IVP PRN (09:00)
[2017-10-27] MEDS: Meperidine 50mg/ml Inj(FOR RIGORS ONLY) IV PRN ×2 (09:12→09:51)
[2017-10-27 09:45] LABS: BASOPHILS % (AUTO) 0.5 % (0.0-2.0); EOSINOPHILS % (AUTO) 1.7 % (0.0-3.0); HEMATOCRIT 40.5 % (42.0-52.0); HEMOGLOBIN 13.6 G/DL (14.2-18.0); LYMPHOCYTES % (AUTO) 15.5 % (20.0-45.0); MEAN CORPUSCULAR VOLUME 92 FL (80-99); MONOCYTES % (AUTO) 4.7 % (1.0-10.0); NEUTROPHILS % (AUTO) 77.6 % (45.0-75.0); PLATELET COUNT 277 K/UL (150-450); RED CELL DISTRIBUTION WIDTH 11.8 % (11.6-14.8); WHITE BLOOD COUNT 10.4 K/UL (4.8-10.8)
[2017-10-27 10:18] LABS: ANION GAP 9 mmol/L (5-15); BLOOD UREA NITROGEN 9 mg/dL (7-18); CALCIUM 8.3 MG/DL (8.5-10.1); CARBON DIOXIDE 26 MMOL/L (21-32); CHLORIDE 102 MMOL/L (98-107); CREATININE 1.7 MG/DL (0.55-1.30); SODIUM 137 MMOL/L (136-145)
--- NOTE | 2017-10-27 10:40 | Immediate Post-Op Evaluation ---
Immediate Post-Op Evalulation Immediate Post-Op Evalulation Procedure: Nila luna ESWL laser lithotrypsy, stent placement Date of Evaluation: Oct 27, 2017 Time of Evaluation: 09:08 IV Fluids: 1200 Blood Products: none Estimated Blood Loss: n/a Urinary Output: n/a Blood Pressure Systolic: 128 Blood Pressure Diastolic: 76 Pulse Rate: 78 Respiratory Rate: 22 O2 Sat by Pulse Oximetry: 99 Temperature (Fahrenheit): 98.2 Pain Score (1-10): 2 Nausea: No Vomiting: No Complications none Patient Status: awake, patent, extubated, none Hydration Status: adequate EDELMIRA SWANSON M.D. Oct 27, 2017 10:40
[2017-10-27] MEDS ORDERED: Vancomycin 1.5 GM/D5W 250ML IVPB ONE (11:30)
[2017-10-27] MEDS: Ramipril 2.5mg cap ORAL SCH (11:55)
[2017-10-27] MEDS: D5 1/2NS w/KCl 20mEq 1,000 ML IV SCH ×2 (11:56→18:50)
--- NOTE | 2017-10-27 11:57 | General Progress Note ---
Assessment/Plan Problem List: (1) Renal colic on left side ICD Codes: N23 - Unspecified renal colic SNOMED: 3664123 (2) Intractable pain ICD Codes: R52 - Pain, unspecified SNOMED: 82903561 (3) Kidney stone ICD Codes: N20.0 - Calculus of kidney SNOMED: 85172924 Status Narrative BC staph epi ---> contaminant ? Assessment/Plan Discussed with ID IVF DC when ok by urologist Subjective Allergies: Coded Allergies: No Known Allergies (Unverified , 10/23/17) Subjective no pain after lithotripsy today Objective Last 24 Hour Vital Signs Date Time Temp Pulse Resp B/P (MAP) Pulse Ox O2 Delivery O2 Flow Rate FiO2 10/27/17 10:40 208.8 78 22 99 10/27/17 10:21 98.2 10/27/17 10:15 100.0 89 16 151/98 100 Nasal Cannula 3.0 100.0 10/27/17 10:00 89 16 159/95 100 Nasal Cannula 3.0 10/27/17 09:51 98.3 10/27/17 09:45 91 18 160/85 100 Nasal Cannula 3.0 10/27/17 09:30 110 24 174/96 100 Nasal Cannula 3.0 10/27/17 09:20 100 24 155/98 100 Nasal Cannula 3.0 10/27/17 09:12 80 19 152/98 100 Simple Mask 6.0 10/27/17 09:12 98.9 10/27/17 09:07 81 19 161/91 100 Simple Mask 6.0 10/27/17 09:02 98.9 91 15 139/99 97 Simple Mask 6.0 98.9 10/27/17 04:00 98.7 82 18 128/88 98 Room Air 98.7 10/26/17 23:58 98.1 75 18 130/84 98 Room Air 98.1 10/26/17 21:20 100.0 10/26/17 20:28 100.8 77 18 152/97 97 100.8 10/26/17 20:17 100.8 10/26/17 15:23 100.3 77 20 145/94 98 Room Air 100.3 10/26/17 15:01 99.0 10/26/17 12:15 99.0 79 22 144/93 96 99.0 Intake and Output 4/24/18 4/25/18 19:00 07:00 Intake Total 1937.5 ml 1312.5 ml Output Total 600 ml 100 ml Balance 1337.5 ml 1212.5 ml Intake Oral 460 ml 300 ml IV Total 1477.5 ml 1012.5 ml Output Urine Total 600 ml Emesis 100 ml # Voids 1 2 # Bowel Movements 3 Laboratory Tests 10/27/17 09:28: White Blood Count 10.4, Red Blood Count 4.40L, Hemoglobin 13.6L, Hematocrit 40.5L, Mean Corpuscular Volume 92, Mean Corpuscular Hemoglobin 30.9, Mean Corpuscular Hemoglobin Concent 33.6, Red Cell Distribution Width 11.8, Platelet Count 277, Mean Platelet Volume 6.0L, Neutrophils (%) (Auto) 77.6H, Lymphocytes (%) (Auto) 15.5L, Monocytes (%) (Auto) 4.7, Eosinophils (%) (Auto) 1.7, Basophils (%) (Auto) 0.5, Sodium Level 137, Potassium Level 4.0, Chloride Level 102, Carbon Dioxide Level 26, Anion Gap 9, Blood Urea Nitrogen 9, Creatinine 1.7H, Estimat Glomerular Filtration Rate 42.2, Glucose Level 107H, Calcium Level 8.3L, Vancomycin Level Trough 6.8 Height (Feet): 6 Height (Inches): 0.00 Weight (Pounds): 180 Cardiovascular: normal rate Respiratory/Chest: lungs clear Abdomen: soft ELENA JAEGER Oct 27, 2017 11:57
[2017-10-27] MEDS: Docusate 100mg cap ORAL SCH ×3 (12:00→18:13)
--- NOTE | 2017-10-27 12:17 | Infectious Diseases Prog Note ---
Assessment/Plan Assessment/Plan A; Sepsis Bacteremia with CoANS, likely contamination Upper UTI pyelonephritis Nephrolithiasis Left hydronephrosis Intracolonic foreign body P; Continue Vancomycin & Zosyn will f/u cultures Subjective ROS Limited/Unobtainable: No Constitutional: Reports: fever, other - Esak=[id number] Respiratory: Reports: no symptoms Cardiovascular: Reports: no symptoms Gastrointestinal/Abdominal: Reports: no symptoms Genitourinary: Reports: other - had lithotripsy & stent placement Allergies: Coded Allergies: No Known Allergies (Unverified , 10/23/17) Objective Vital Signs Last 24 Hour Vital Signs Date Time Temp Pulse Resp B/P (MAP) Pulse Ox O2 Delivery O2 Flow Rate FiO2 10/27/17 11:55 101.4 10/27/17 11:55 134/84 10/27/17 10:40 208.8 78 22 99 10/27/17 10:21 98.2 10/27/17 10:15 100.0 89 16 151/98 100 Nasal Cannula 3.0 100.0 10/27/17 10:00 89 16 159/95 100 Nasal Cannula 3.0 10/27/17 09:51 98.3 10/27/17 09:45 91 18 160/85 100 Nasal Cannula 3.0 10/27/17 09:30 110 24 174/96 100 Nasal Cannula 3.0 10/27/17 09:20 100 24 155/98 100 Nasal Cannula 3.0 10/27/17 09:12 80 19 152/98 100 Simple Mask 6.0 10/27/17 09:12 98.9 10/27/17 09:07 81 19 161/91 100 Simple Mask 6.0 10/27/17 09:02 98.9 91 15 139/99 97 Simple Mask 6.0 98.9 10/27/17 04:00 98.7 82 18 128/88 98 Room Air 98.7 10/26/17 23:58 98.1 75 18 130/84 98 Room Air 98.1 10/26/17 21:20 100.0 10/26/17 20:28 100.8 77 18 152/97 97 100.8 10/26/17 20:17 100.8 10/26/17 15:23 100.3 77 20 145/94 98 Room Air 100.3 10/26/17 15:01 99.0 10/26/17 12:15 99.0 79 22 144/93 96 99.0 Height (Feet): 6 Height (Inches): 0.00 Weight (Pounds): 180 General Appearance: no acute distress HEENT: mucous membranes moist Respiratory/Chest: lungs clear Cardiovascular: normal rate Abdomen: soft, non tender Genitourinary: other - Unger catheter, hematuria Extremities: no edema Neurologic/Psychiatric: alert, oriented x 3, responsive Laboratory Tests Test 10/27/17 09:28 White Blood Count 10.4 K/UL (4.8-10.8) Red Blood Count 4.40 M/UL (4.70-6.10) L Hemoglobin 13.6 G/DL (14.2-18.0) L Hematocrit 40.5 % (42.0-52.0) L Mean Corpuscular Volume 92 FL (80-99) Mean Corpuscular Hemoglobin 30.9 PG (27.0-31.0) Mean Corpuscular Hemoglobin Concent 33.6 G/DL (32.0-36.0) Red Cell Distribution Width 11.8 % (11.6-14.8) Platelet Count 277 K/UL (150-450) Mean Platelet Volume 6.0 FL (6.5-10.1) L Neutrophils (%) (Auto) 77.6 % (45.0-75.0) H Lymphocytes (%) (Auto) 15.5 % (20.0-45.0) L Monocytes (%) (Auto) 4.7 % (1.0-10.0) Eosinophils (%) (Auto) 1.7 % (0.0-3.0) Basophils (%) (Auto) 0.5 % (0.0-2.0) Sodium Level 137 MMOL/L (136-145) Potassium Level 4.0 MMOL/L (3.5-5.1) Chloride Level 102 MMOL/L (98-107) Carbon Dioxide Level 26 MMOL/L (21-32) Anion Gap 9 mmol/L (5-15) Blood Urea Nitrogen 9 mg/dL (7-18) Creatinine 1.7 MG/DL (0.55-1.30) H Estimat Glomerular Filtration Rate 42.2 mL/min (>60) Glucose Level 107 MG/DL (74-106) H Calcium Level 8.3 MG/DL (8.5-10.1) L Vancomycin Level Trough 6.8 ug/mL (5.0-12.0) Current Medications Medications (Trade) Dose Ordered Sig/Johnathan Route PRN Reason Start Time Stop Time Status Last Admin Dose Admin Acetaminophen (Tylenol) 650 mg Q4H PRN ORAL FEVER 10/27/17 09:00 11/26/17 08:59 Acetaminophen (Tylenol) 650 mg Q6H PRN ORAL Mild Pain (Pain Scale 1-3) 10/27/17 09:00 11/26/17 08:59 10/27/17 11:55 Acetaminophen/ Hydrocodone Bitart ([place] 5/325) 1 tab Q4H PRN ORAL Moderate Pain (Pain Scale 4-6) 10/27/17 09:00 11/03/17 08:59 Dextrose/ Electrolytes 1,000 ml @ 125 mls/hr Q8H IV 10/27/17 11:00 11/26/17 10:59 10/27/17 11:56 Diphenhydramine HCl (Benadryl) 25 mg Q15M PRN IVP Itching 10/27/17 08:15 10/27/17 16:00 10/27/17 09:50 Docusate Sodium (Colace) 100 mg TWICE A DAY ORAL 10/27/17 12:00 11/26/17 11:59 Hydromorphone HCl (Dilaudid) 0.5 mg Q5M PRN IVP Severe Pain (Pain Scale 7-10) 10/27/17 08:15 10/27/17 16:00 Hydromorphone HCl (Dilaudid) 1 mg Q3H PRN IVP Moderate Pain (Pain Scale 4-6) 10/26/17 12:15 11/02/17 12:14 10/27/17 05:02 Hydromorphone HCl (Dilaudid) 1 mg Q3H PRN IVP for pain score 4-6 10/27/17 09:00 11/03/17 08:59 Hydromorphone HCl (Dilaudid) 1.5 mg Q3H PRN IVP Severe Pain (Pain Scale 7-10) 10/26/17 12:15 11/02/17 12:14 10/26/17 20:14 Lorazepam (Ativan) 1 mg Q4H PRN ORAL For Anxiety 10/24/17 04:15 10/31/17 04:14 10/26/17 12:18 Ondansetron HCl (Zofran) 4 mg Q1H PRN IVP Nausea & Vomiting 10/27/17 08:15 10/27/17 16:00 Ondansetron HCl (Zofran) 4 mg Q6H PRN IVP Nausea & Vomiting 10/27/17 09:00 11/26/17 08:59 Piperacillin Sod/ Tazobactam Sod 3.375 gm/Dextrose 110 ml @ 27.5 mls/hr EVERY 8 HOURS IVPB 10/27/17 14:00 11/03/17 13:59 Ramipril (Altace) 10 mg DAILY ORAL 10/24/17 11:00 11/23/17 10:59 10/27/17 11:55 Tamsulosin HCl (Flomax) 0.4 mg BEDTIME ORAL 10/23/17 23:00 11/22/17 22:59 Temazepam (Restoril) 7.5 mg DAILYPRN PRN ORAL Insomnia 10/27/17 09:00 11/03/17 08:59 Vancomycin HCl (Vanco rx to dose) 1 ea DAILY PRN MISC Per rx protocol 10/24/17 04:30 11/23/17 04:29 Vancomycin HCl/ Dextrose 250 ml @ 125 mls/hr ONCE ONCE IVPB 10/27/17 11:30 10/27/17 13:29 10/27/17 11:56 GURJIT JAEGER Oct 27, 2017 12:17
[2017-10-27] MEDS: Piperacillin/Tazobactam 3.375 GM in D5W 110 ML IVPB SCH ×2 (14:14→21:02)
[2017-10-27] MEDS: Tamsulosin 0.4mg cap ORAL SCH (21:00)
[2017-10-28 00:31] VITALS: BP 138/89
[2017-10-28 04:00] VITALS: BP 124/79
[2017-10-28] MEDS: Piperacillin/Tazobactam 3.375 GM in D5W 110 ML IVPB SCH ×3 (06:06→22:00)
[2017-10-28 07:00] LABS: BASOPHILS % (AUTO) 0.6 % (0.0-2.0); EOSINOPHILS % (AUTO) 0.9 % (0.0-3.0); HEMATOCRIT 36.6 % (42.0-52.0); HEMOGLOBIN 12.7 G/DL (14.2-18.0); LYMPHOCYTES % (AUTO) 15.9 % (20.0-45.0); MEAN CORPUSCULAR VOLUME 92 FL (80-99); MONOCYTES % (AUTO) 12.4 % (1.0-10.0); NEUTROPHILS % (AUTO) 70.2 % (45.0-75.0); PLATELET COUNT 276 K/UL (150-450); RED BLOOD COUNT 3.98 M/UL (4.70-6.10); RED CELL DISTRIBUTION WIDTH 11.9 % (11.6-14.8); WHITE BLOOD COUNT 12.5 K/UL (4.8-10.8)
[2017-10-28 07:19] LABS: ANION GAP 9 mmol/L (5-15); BLOOD UREA NITROGEN 13 mg/dL (7-18); CALCIUM 8.6 MG/DL (8.5-10.1); CARBON DIOXIDE 26 MMOL/L (21-32); CHLORIDE 99 MMOL/L (98-107); CREATININE 2.3 MG/DL (0.55-1.30); POTASSIUM 3.8 MMOL/L (3.5-5.1); SODIUM 134 MMOL/L (136-145)
[2017-10-28 08:00] VITALS: BP 143/83
[2017-10-28] MEDS: Docusate 100mg cap ORAL SCH ×2 (09:00→17:14)
[2017-10-28] MEDS: Ramipril 2.5mg cap ORAL SCH (09:12)
[2017-10-28] MEDS ORDERED: Vancomycin 1gm/D5W 275ml IVPB ONE ×2 (10:00)
[2017-10-28 12:00] VITALS: BP 143/85
--- NOTE | 2017-10-28 12:42 | Infectious Diseases Prog Note ---
Assessment/Plan Assessment/Plan A; Sepsis Bacteremia with CoANS, likely contamination Upper UTI pyelonephritis Nephrolithiasis Left hydronephrosis Intracolonic foreign body Acute renal failure worsening P; discontinue Vancomycin , continue Zosyn will f/u cultures case was D/W PMD Subjective ROS Limited/Unobtainable: No Constitutional: Reports: fever, other - Cjwm=962.4 Genitourinary: Reports: other - left flank pain Allergies: Coded Allergies: No Known Allergies (Unverified , 10/23/17) Objective Vital Signs Last 24 Hour Vital Signs Date Time Temp Pulse Resp B/P (MAP) Pulse Ox O2 Delivery O2 Flow Rate FiO2 10/28/17 12:00 99.2 98 20 143/85 98 Room Air 99.2 10/28/17 09:12 124/79 10/28/17 08:00 100.4 85 20 143/83 95 Room Air 100.4 10/28/17 04:00 98.6 76 18 124/79 98 Room Air 98.6 10/28/17 00:31 99.8 86 18 138/89 97 Room Air 99.8 10/27/17 23:39 99.6 10/27/17 20:00 99.6 82 18 129/74 98 Room Air 99.6 10/27/17 18:12 99.1 10/27/17 17:18 99.1 10/27/17 16:00 99.1 78 19 104/63 99 99.1 Height (Feet): 6 Height (Inches): 0.00 Weight (Pounds): 180 HEENT: mucous membranes moist Respiratory/Chest: lungs clear Cardiovascular: normal rate Abdomen: other - soft, tender in left flank Extremities: no edema Neurologic/Psychiatric: alert, oriented x 3, responsive Microbiology Date/Time Source Procedure Growth Status 10/27/17 08:18 Urine,Ureter/Kidney Urine Culture - Preliminary Resulted Laboratory Tests Test 10/28/17 06:30 White Blood Count 12.5 K/UL (4.8-10.8) H Red Blood Count 3.98 M/UL (4.70-6.10) L Hemoglobin 12.7 G/DL (14.2-18.0) L Hematocrit 36.6 % (42.0-52.0) L Mean Corpuscular Volume 92 FL (80-99) Mean Corpuscular Hemoglobin 31.9 PG (27.0-31.0) H Mean Corpuscular Hemoglobin Concent 34.7 G/DL (32.0-36.0) Red Cell Distribution Width 11.9 % (11.6-14.8) Platelet Count 276 K/UL (150-450) Mean Platelet Volume 6.2 FL (6.5-10.1) L Neutrophils (%) (Auto) 70.2 % (45.0-75.0) Lymphocytes (%) (Auto) 15.9 % (20.0-45.0) L Monocytes (%) (Auto) 12.4 % (1.0-10.0) H Eosinophils (%) (Auto) 0.9 % (0.0-3.0) Basophils (%) (Auto) 0.6 % (0.0-2.0) Sodium Level 134 MMOL/L (136-145) L Potassium Level 3.8 MMOL/L (3.5-5.1) Chloride Level 99 MMOL/L (98-107) Carbon Dioxide Level 26 MMOL/L (21-32) Anion Gap 9 mmol/L (5-15) Blood Urea Nitrogen 13 mg/dL (7-18) Creatinine 2.3 MG/DL (0.55-1.30) H Estimat Glomerular Filtration Rate 29.8 mL/min (>60) Glucose Level 105 MG/DL (74-106) Calcium Level 8.6 MG/DL (8.5-10.1) Random Vancomycin Level 11.4 ug/mL Current Medications Medications (Trade) Dose Ordered Sig/Johnathan Route PRN Reason Start Time Stop Time Status Last Admin Dose Admin Acetaminophen (Tylenol) 650 mg Q4H PRN ORAL FEVER 10/27/17 09:00 11/26/17 08:59 Acetaminophen (Tylenol) 650 mg Q6H PRN ORAL Mild Pain (Pain Scale 1-3) 10/27/17 09:00 11/26/17 08:59 10/27/17 17:18 Acetaminophen/ Hydrocodone Bitart ([place] 5/325) 1 tab Q4H PRN ORAL Moderate Pain (Pain Scale 4-6) 10/27/17 09:00 11/03/17 08:59 10/27/17 23:39 Al Hydroxide/Mg Hydroxide (Mylanta) 30 ml Q6H PRN ORAL gas pain 4/25/18 21:45 11/26/17 21:44 10/28/17 00:55 Docusate Sodium (Colace) 100 mg TWICE A DAY ORAL 10/27/17 12:00 11/26/17 11:59 10/27/17 18:13 Hydromorphone HCl (Dilaudid) 1 mg Q3H PRN IVP Moderate Pain (Pain Scale 4-6) 10/26/17 12:15 11/02/17 12:14 10/28/17 01:05 Hydromorphone HCl (Dilaudid) 1 mg Q3H PRN IVP for pain score 4-6 10/27/17 09:00 11/03/17 08:59 Hydromorphone HCl (Dilaudid) 1.5 mg Q3H PRN IVP Severe Pain (Pain Scale 7-10) 10/26/17 12:15 11/02/17 12:14 10/28/17 11:27 Lorazepam (Ativan) 1 mg Q4H PRN ORAL For Anxiety 10/24/17 04:15 10/31/17 04:14 10/26/17 12:18 Ondansetron HCl (Zofran) 4 mg Q6H PRN IVP Nausea & Vomiting 10/27/17 09:00 11/26/17 08:59 10/28/17 06:30 Piperacillin Sod/ Tazobactam Sod 3.375 gm/Dextrose 110 ml @ 27.5 mls/hr EVERY 8 HOURS IVPB 10/27/17 14:00 11/03/17 13:59 10/28/17 06:06 Ramipril (Altace) 10 mg DAILY ORAL 10/24/17 11:00 11/23/17 10:59 10/28/17 09:12 Tamsulosin HCl (Flomax) 0.4 mg BEDTIME ORAL 10/23/17 23:00 11/22/17 22:59 Temazepam (Restoril) 7.5 mg DAILYPRN PRN ORAL Insomnia 10/27/17 09:00 11/03/17 08:59 Vancomycin HCl (Vanco rx to dose) 1 ea DAILY PRN MISC Per rx protocol 10/24/17 04:30 11/23/17 04:29 GURJIT JAEGER Oct 28, 2017 12:42
--- NOTE | 2017-10-28 12:53 | General Progress Note ---
Assessment/Plan Problem List: (1) Renal colic on left side ICD Codes: N23 - Unspecified renal colic SNOMED: 0787324 (2) Intractable pain ICD Codes: R52 - Pain, unspecified SNOMED: 47463412 (3) Kidney stone ICD Codes: N20.0 - Calculus of kidney SNOMED: 16109787 (4) ARF (acute renal failure) Assessment & Plan: worse ICD Codes: N17.9 - Acute kidney failure, unspecified SNOMED: 21426135 Assessment/Plan Discussed with Dr Sexton Restart IVF DC Vanco pain meds KUB renal US Discussed with RN Subjective Allergies: Coded Allergies: No Known Allergies (Unverified , 10/23/17) Subjective pain after soriano was removed Objective Last 24 Hour Vital Signs Date Time Temp Pulse Resp B/P (MAP) Pulse Ox O2 Delivery O2 Flow Rate FiO2 10/28/17 12:00 99.2 98 20 143/85 98 Room Air 99.2 10/28/17 09:12 124/79 10/28/17 08:00 100.4 85 20 143/83 95 Room Air 100.4 10/28/17 04:00 98.6 76 18 124/79 98 Room Air 98.6 10/28/17 00:31 99.8 86 18 138/89 97 Room Air 99.8 10/27/17 23:39 99.6 10/27/17 20:00 99.6 82 18 129/74 98 Room Air 99.6 10/27/17 18:12 99.1 10/27/17 17:18 99.1 10/27/17 16:00 99.1 78 19 104/63 99 99.1 Intake and Output 10/27/17 10/28/17 19:00 07:00 Intake Total 3950 ml 1500 ml Output Total 2915 ml 2450 ml Balance 1035 ml -950 ml Intake Oral 1600 ml 1500 ml IV Total 2350 ml Output Urine Total 2900 ml 2450 ml Peritoneal Dialysis UF 15 ml Laboratory Tests 10/28/17 06:30: White Blood Count 12.5H, Red Blood Count 3.98L, Hemoglobin 12.7L, Hematocrit 36.6L, Mean Corpuscular Volume 92, Mean Corpuscular Hemoglobin 31.9H, Mean Corpuscular Hemoglobin Concent 34.7, Red Cell Distribution Width 11.9, Platelet Count 276, Mean Platelet Volume 6.2L, Neutrophils (%) (Auto) 70.2, Lymphocytes ( %) (Auto) 15.9L, Monocytes (%) (Auto) 12.4H, Eosinophils (%) (Auto) 0.9, Basophils (%) (Auto) 0.6, Sodium Level 134L, Potassium Level 3.8, Chloride Level 99, Carbon Dioxide Level 26, Anion Gap 9, Blood Urea Nitrogen 13, Creatinine 2.3H, Estimat Glomerular Filtration Rate 29.8, Glucose Level 105, Calcium Level 8.6, Random Vancomycin Level 11.4 Height (Feet): 6 Height (Inches): 0.00 Weight (Pounds): 180 Cardiovascular: normal rate Respiratory/Chest: lungs clear Abdomen: tender - left lower quadrant ELENA JAEGER Oct 28, 2017 12:53
--- NOTE | 2017-10-28 13:31 | 48 Hour Post Anesthesia Eval ---
Post Anesthesia Evaluation Procedure: Nila luna ESWL laser lithotrypsy, stent placement Date of Evaluation: Oct 28, 2017 Time of Evaluation: 13:30 Blood Pressure Systolic: 142 0: 68 Pulse Rate: 76 Respiratory Rate: 22 Temperature (Fahrenheit): 97.6 O2 Sat by Pulse Oximetry: 98 Airway: patent Nausea: No Vomiting: No Pain Intensity: 4 Hydration Status: adequate Cardiopulmonary Status: stable Mental Status/LOC: patient returned to baseline Follow-up Care/Observations: n/a Post-Anesthesia Complications: none Follow-up care needed: N/A EDELMIRA SWANSON M.D. Oct 28, 2017 13:31
[2017-10-28] MEDS: LORazepam 1mg tab ORAL PRN ×2 (14:30→19:52)
--- NOTE | 2017-10-28 15:53 | Diagnostic Imaging Report ---
Indication: Pain, status post renal lithotripsy Technique: Grayscale and duplex images of the kidneys, retroperitoneum, and bladder were obtained. Comparison: No comparison ultrasounds. Comparison abdomen radiograph dated 10/26/2017, abdomen and pelvis CT dated 10/23/2017 Findings: Right kidney measures 13.5 cm in length. Left kidney measures 12.7 cm in length. Both kidneys demonstrate normal echogenicity. There is mild left hydronephrosis. This is difficult to compare between different modalities, but suspect less severe than seen on recent CT scan. Hyperechoic focus in the right upper renal collecting system presumably reflects a calculus seen on recent CT scan. Other bright echoes are probably artifactual, as the CT only demonstrates a single calculus. On the left, hyperechoic foci in the region of the renal pelvis likely reflects a stent demonstrated on a subsequent abdomen radiograph. Echogenic foci probably represent the residual calcifications also seen in the renal pelvis on the subsequent radiograph. The distal end of the nephroureteral stent is seen within the bladder. A postvoid bladder volume is 12 mL. Normal inferior vena cava. Bladder is normal. Impression: Left hydronephrosis, post lithotripsy and stent placement, stable or possibly somewhat improved since previous CT scan of 10/23/2017 Left intrarenal calculi, also demonstrated on subsequent radiograph Right upper pole calculus, nonobstructive, also demonstrated on recent CT scan 12 mL postvoid bladder volume.
[2017-10-28 16:00] VITALS: BP 140/72
--- NOTE | 2017-10-28 16:07 | Diagnostic Imaging Report ---
Indication: Abdominal pain Technique: Supine view of the abdomen Comparison: 10/26/2017 Findings: Left nephroureteral stent has been placed. Previously demonstrated left-sided calcification, documented on CT to be at the ureteropelvic junction, is no longer evident, and no calculi are seen now seen along the expected course of the urinary tracts. Dense radiopaque foreign body, previously demonstrated to be an ingested crown, is seen in the expected area of the right colon. Bowel gas pattern is unremarkable. Impression: Previously demonstrated left ureteropelvic junction calculus is no longer evident, post lithotripsy Left nephroureteral stent in good position Other findings as noted
[2017-10-28 20:00] VITALS: BP 133/88
[2017-10-28] MEDS: Tamsulosin 0.4mg cap ORAL SCH (21:59)
--- NOTE | 2017-10-29 01:15 | Operative Note - Dictated ---
DATE OF OPERATION: 10/28/2017 PREOPERATIVE DIAGNOSIS: Left kidney stone. POSTOPERATIVE DIAGNOSIS: Left kidney stone. OPERATION: Extracorporeal shock-wave lithotripsy of the large left renal calculi, retrograde intrarenal surgery, retrograde pyelogram, double-J stent placement. SUSTAINABLE COMMUNITIES DESIGNER: David Hair M.D. ANESTHESIA: General. FINDINGS: Large, almost 2 cm stone in the pelvis of the left kidney. INDICATIONS FOR SURGERY: The patient was admitted for urosepsis and treated with IV antibiotics for a large left renal stone. He defervesced and stopped having fevers and prepared for retrograde intrarenal surgery with shock-wave lithotripsy. The patient understands the nature of the procedure, the nature of the surgery and potential complications, he signed a consent. DESCRIPTION OF SURGERY: He was brought to the operating room, placed in lithotomy position, prepped and draped in a standard fashion. Under general anesthesia, flexible cystoscope was introduced into the bladder and then the ureteroscope was introduced into the left ureter, carried all the way until the kidney stone was found in the left renal pelvis approximately 2 cm. Using laser 200 micron fiber, the stone was partially fragmented and then extracorporeal shock-wave lithotripsy lithotripter 4 kilovolts and 2100 shocks was applied and good stone fragmentation was accomplished. Stone cultures and urine cultures were sent for pathologic examination. Double-J stent 28 x 6-English was placed into the kidney and left indwelling. The patient tolerated the procedure well. No evidence of complication. Sponge count and instrument count was correct. David Hair M.D. DR: Louis JOB#: [id number] CC:
[2017-10-29 04:00] VITALS: BP 129/74
[2017-10-29] MEDS: Piperacillin/Tazobactam 3.375 GM in D5W 110 ML IVPB SCH (05:21)
[2017-10-29 06:03] LABS: ANION GAP 10 mmol/L (5-15); BLOOD UREA NITROGEN 13 mg/dL (7-18); CALCIUM 8.8 MG/DL (8.5-10.1); CARBON DIOXIDE 25 MMOL/L (21-32); CHLORIDE 103 MMOL/L (98-107); CREATININE 2.4 MG/DL (0.55-1.30); POTASSIUM 3.9 MMOL/L (3.5-5.1); SODIUM 138 MMOL/L (136-145)
[2017-10-29 08:00] VITALS: BP 135/75
[2017-10-29] MEDS: Docusate 100mg cap ORAL SCH (09:00)
--- NOTE | 2017-10-29 12:44 | Infectious Diseases Prog Note ---
Assessment/Plan Assessment/Plan A; Sepsis Bacteremia with CoANS, likely contamination Upper UTI pyelonephritis Nephrolithiasis Left hydronephrosis Intracolonic foreign body Acute renal failure Diarrhea P; continue Zosyn stool for C. difficile in case of discharge PO Levaquin X 7 days Subjective Constitutional: Reports: fever, other - feels better Gastrointestinal/Abdominal: Reports: diarrhea Genitourinary: Reports: frequency Allergies: Coded Allergies: No Known Allergies (Unverified , 10/23/17) Objective Vital Signs Last 24 Hour Vital Signs Date Time Temp Pulse Resp B/P (MAP) Pulse Ox O2 Delivery O2 Flow Rate FiO2 10/29/17 08:00 99.4 90 19 135/75 98 Room Air 99.4 10/29/17 04:00 98.6 76 19 129/74 98 Room Air 98.6 10/28/17 20:00 100.1 85 18 133/88 97 Room Air 100.1 10/28/17 18:13 99.0 10/28/17 17:14 101.4 10/28/17 16:00 99.3 86 20 140/72 96 Room Air 99.3 10/28/17 13:31 207.7 76 22 98 Height (Feet): 6 Height (Inches): 0.00 Weight (Pounds): 180 General Appearance: no acute distress HEENT: mucous membranes moist Respiratory/Chest: lungs clear Cardiovascular: normal rate Abdomen: soft, non tender Extremities: no edema Neurologic/Psychiatric: alert, oriented x 3, responsive Microbiology Date/Time Source Procedure Growth Status 10/27/17 08:18 Urine,Ureter/Kidney Urine Culture - Preliminary Mixed Gram Positive Organism Resulted Laboratory Tests Test 10/29/17 05:35 Sodium Level 138 MMOL/L (136-145) Potassium Level 3.9 MMOL/L (3.5-5.1) Chloride Level 103 MMOL/L (98-107) Carbon Dioxide Level 25 MMOL/L (21-32) Anion Gap 10 mmol/L (5-15) Blood Urea Nitrogen 13 mg/dL (7-18) Creatinine 2.4 MG/DL (0.55-1.30) H Estimat Glomerular Filtration Rate 28.4 mL/min (>60) Glucose Level 114 MG/DL (74-106) H Calcium Level 8.8 MG/DL (8.5-10.1) Current Medications Medications (Trade) Dose Ordered Sig/Johnathan Route PRN Reason Start Time Stop Time Status Last Admin Dose Admin Acetaminophen (Tylenol) 650 mg Q4H PRN ORAL FEVER 10/27/17 09:00 11/26/17 08:59 10/28/17 17:14 Acetaminophen (Tylenol) 650 mg Q6H PRN ORAL Mild Pain (Pain Scale 1-3) 10/27/17 09:00 11/26/17 08:59 10/27/17 17:18 Acetaminophen/ Hydrocodone Bitart ([place] 5/325) 1 tab Q4H PRN ORAL Moderate Pain (Pain Scale 4-6) 10/27/17 09:00 11/03/17 08:59 10/27/17 23:39 Al Hydroxide/Mg Hydroxide (Mylanta) 30 ml Q6H PRN ORAL gas pain 10/27/17 21:45 11/26/17 21:44 10/28/17 00:55 Docusate Sodium (Colace) 100 mg TWICE A DAY ORAL 10/27/17 12:00 11/26/17 11:59 10/27/17 18:13 Hydromorphone HCl (Dilaudid) 1 mg Q3H PRN IVP Moderate Pain (Pain Scale 4-6) 10/26/17 12:15 11/02/17 12:14 10/28/17 01:05 Hydromorphone HCl (Dilaudid) 1 mg Q3H PRN IVP for pain score 4-6 10/27/17 09:00 11/03/17 08:59 Hydromorphone HCl (Dilaudid) 1.5 mg Q3H PRN IVP Severe Pain (Pain Scale 7-10) 10/26/17 12:15 11/02/17 12:14 10/28/17 11:27 Lorazepam (Ativan) 1 mg Q4H PRN ORAL For Anxiety 10/24/17 04:15 10/31/17 04:14 10/28/17 19:52 Ondansetron HCl (Zofran) 4 mg Q6H PRN IVP Nausea & Vomiting 10/27/17 09:00 11/26/17 08:59 10/28/17 06:30 Piperacillin Sod/ Tazobactam Sod 3.375 gm/Dextrose 110 ml @ 27.5 mls/hr EVERY 8 HOURS IVPB 10/27/17 14:00 11/03/17 13:59 10/29/17 05:21 Sodium Chloride 1,000 ml @ 100 mls/hr Q10H IV 10/28/17 13:30 11/27/17 13:29 10/29/17 10:07 Tamsulosin HCl (Flomax) 0.4 mg BEDTIME ORAL 10/23/17 23:00 11/22/17 22:59 10/28/17 21:59 Temazepam (Restoril) 7.5 mg DAILYPRN PRN ORAL Insomnia 10/27/17 09:00 11/03/17 08:59 GURJIT JAEGER Oct 29, 2017 12:44
[2017-10-29] MEDS ORDERED: ATIVAN1 MG ORAL (12:52)
[2017-10-29 12:56] VITALS: BP 129/85
[2017-10-29] MEDS ORDERED: LEVAQUIN250 M1 ORAL (13:45)
[2017-10-29] MEDS ORDERED: D5NS 1000ml IV ONE (14:14)
[2017-10-29] MEDS ORDERED: D5 1/2NS 1000ml IV ONE (14:14)
[2017-10-29] MEDS ORDERED: Tubing IV Secondary IV ONE (14:14)
== END 2017-10-29 14:15 | disposition home or self-care (01) | DRG 854 ==
LOC: EMR 17:10 → 4E 17:54 → EDBEDREQ 18:28 → 3E 10-24 17:52
PROC: 0TC48ZZ Extirpation of Matter from Left Kidney Pelvis, Via Natural or Artificial Opening Endoscopic (ICD-10-PCS; principal; 2017-10-28)
PROC: 0T778DZ Dilation of Left Ureter with Intraluminal Device, Via Natural or Artificial Opening Endoscopic (ICD-10-PCS; principal; 2017-10-28)
DX: A41.9 Sepsis, unspecified organism (principal); N17.9 Acute kidney failure, unspecified; N13.6 Pyonephrosis; D35.00 Benign neoplasm of unspecified adrenal gland; R52 Pain, unspecified
CPT/HCPCS: 36415; 74018; 74176; 76770; 80048; 80053; 80202; 81003; 82962; 83690; 85025; 85610; 85730; 87040; 87086; 87181; 87324; 94003; 94150; 99285; J2250; J2405; J2710